=== PATIENT | male | born 1950 | race Caucasian/White ===

== ENCOUNTER 2016-12-03 17:11 | Observation (INO) | payer MEDICARE ==
--- NOTE | ~2016-12-03 | EKG ---
PATIENT: NINO SHANKS UNIT #: [id number] Ventricular Rate: 68 BPM Atrial Rate: 68 BPM P-R Interval: 168 ms QRS Duration: 86 ms Q-T Interval: 396 ms QTC Calculation(Bezet): 421 ms P [place]: 95 degrees Calculated R [place]: 50 degrees Calculated T [place]: 28 degrees Diagnosis Line: Normal sinus rhythm Diagnosis Line: Normal ECG Diagnosis Line: No previous ECGs available Diagnosis Line: Confirmed by KG JALLOH MD ([id number]) on Diagnosis Line: 12/05/2016 4:04:43 PM INTERPRETING MD: YEIMI STRONG
--- NOTE | ~2016-12-03 | DS ---
Unit #: [id number] #: [id number] Patient: NINO SHANKS JR [id number] [address] [place], [place] [address] [id number] I MR#: [id number] NAME: NINO SHANKS JR ROOM: 215 Age: 66 Sex: M Admission Date: 12/03/2016 : 1950 Discharge Date: 12/04/2016 Attending Physician: Joshua Wang M.D. Primary Care Physician: No Primary Care Physician DISCHARGE SUMMARY DISCHARGE DIAGNOSES 1. Likely primary lung cancer which is a new diagnosis with metastatic disease. 2. Likely chronic obstructive pulmonary disease with acute exacerbation, treated with Duo-Nebs and mucolytics. 3. Gastroesophageal reflux disease. 4. Degenerative joint disease. 5. Partial colectomy with colostomy and reversal from diverticular disease. 6. Multiple bilateral rotator cuff repairs. PROCEDURE The patient will have a liver biopsy done today, 12/04/16. IMAGING Imaging consists of chest x-ray 12/03/16 with patchy, oval, nodular density lateral to the mid left hilum measuring close to 3 cm which is new compared to 03/15/2015. CT angiogram chest per PE protocol. Impression - left upper lobe/left hilar lung mass in keeping with appearance of malignancy. Contiguous dense opacity in the anterior left upper lobe is favored to represent contiguous malignant extension to the anterior pleural margin over that of a postobstructive pneumonia. 2) Single 9 mm right lower lobe and 8 mm or left lower lobe noncalcified pulmonary nodules are worrisome for potential metastatic disease. 3) Pathologically enlarged lymph nodes within mediastinum and left hilum in keeping with the appearance of kelsey metastases. 4) Innumerable low density nodules scattered throughout the liver parenchyma consistent with extensive hepatic metastatic disease, incompletely imaged. 5) Incompletely imaged with mild bilateral adrenal gland thickening, worrisome for adrenal metastases. 6) Pathologically enlarged gastrohepatic malignant lymph node in keeping with abdominal metastatic disease. 7) No evidence of osseous metastatic disease in the chest. 8) No pulmonary embolism. HOSPITAL COURSE The patient is a pleasant 66-year-old male with a past medical history of degenerative joint disease, GERD, significant tobacco usage, significant alcohol usage, presents to the emergency department due to dyspnea on exertion with some wheezing. The patient denied chest pain with above symptoms. Patient denied changes in his usual cough and denied weight loss. The patient presented to the emergency department where a nebulizer actually improved his symptoms. His chest x-ray was abnormal; therefore, CT scan was done. CT was worrisome for primary lung cancer with Unit #: [id number] #: [id number] Patient: NINO SHANKS JR metastases. The patient was admitted. Dr. Bajwa of oncology and Dr. Lenz with pulmonary were both consulted. Dr. Bajwa, at this time, is recommending that a liver biopsy be done to find out the exact source of the primary cancer and felt that patient is stable and may discharge home following this procedure. The patient can follow up with Dr. Bajwa. Dr. Lenz has not seen this patient at this time of dictation. I am recommending that if Dr. Lenz has no other workup that patient may be discharged to follow up with Dr. Lenz, Dr. Bajwa as needed. DISCHARGE CONDITION Stable. DISCHARGE DIET Resume to heart healthy diet as was prior to hospitalization. ACTIVITY Resume activities as prior to hospitalization with ambulating every day as tolerated. DISCHARGE MEDICATIONS I will discharge patient with Symbicort two puffs inhaled twice daily. Other than that, patient has no other needs. FOLLOWUP INSTRUCTIONS To follow up with Dr. Bajwa, to call his office. Follow up with Dr. Lenz as needed. Follow up with primary care physician within one to two weeks. Dictated by... Shiv Arteaga PA-C for Simone Ogden/juan manuel TD: 12/06/2016 08:58 JOB #: [id number] DISCHARGE SUMMARY X X DISCHARGE SUMMARY
--- NOTE | ~2016-12-03 | HP ---
Unit #: [id number] #: [id number] Patient: NINO SHANKS JR [id number] [address] [address] [id number] I MR#: [id number] NAME: NINO SHANKS JR ROOM: 14772 Age: 66 Sex: M Admission Date: 12/03/2016 : 1950 Attending Physician: Gill Mckinnon M.D. HISTORY AND PHYSICAL CHIEF COMPLAINT Dyspnea on exertion. CT scan worrisome for primary lung cancer with metastatic disease. HISTORY OF PRESENT ILLNESS This pleasant 66-year-old male with history of DJD and GERD is admitted for an abnormal chest CT. The patient was well until the past week when he began to experience dyspnea on exertion and some wheezing. He denies chest pain with the above, change in his usual cough, or weight loss. He presented to this emergency department where a nebulizer actually improved his symptoms. His chest x-ray was abnormal; therefore, a CT scan was performed. The CT scan is worrisome for primary lung cancer with metastatic disease as will be dictated below. PAST MEDICAL HISTORY 1. Gastroesophageal reflux disease and gastritis. 2. Degenerative joint disease. 3. Partial colectomy with colostomy and reversal for diverticular disease. 4. Admission for a small bowel obstruction in 2015. Colonoscopy revealed polyps which were removed. 5. Multiple bilateral rotator cuff repairs. ALLERGIES None. HOME MEDICATIONS Aleve p.r.n. FAMILY HISTORY Unknown type of cancer. SOCIAL HISTORY The patient lives alone. He smoked between one-half to one and a half packs per day but stopped smoking seven days ago. He did drink heavily in the past but now only drinks occasional beer. REVIEW OF SYSTEMS Notable for dyspnea on exertion, GERD, gastritis, DJD, and above-mentioned surgeries. All other systems were reviewed and are otherwise negative. PHYSICAL EXAMINATION Unit #: [id number] #: [id number] Patient: NINO SHANKS JR GENERAL: A very pleasant 66-year-old male currently in no acute distress. VITAL SIGNS: Temperature 97.4, pulse 73, respirations 20, blood pressure 125/65, and O2 saturation is 100% on room air. HEENT: Eyes PERRLA. Extraocular muscles are intact. Pharynx is benign. NECK: Supple without adenopathy or thyromegaly. CHEST: Somewhat diminished breath sounds but clear. CARDIAC: Normal S1 and S2, without S3, S4, or murmur. ABDOMEN: Bowel sounds are present. Mild hepatomegaly is noted on exam. Nontender. No masses. EXTREMITIES: Without clubbing, cyanosis, or edema. Pedal pulses are present. LYMPHATICS: No cervical, supraclavicular, or axillary lymphadenopathy. NEUROLOGIC: Patient is awake, alert, and oriented. Cranial nerves are intact. Equal strength throughout. DIAGNOSTIC STUDIES LABORATORY: Hematocrit is 46.6, white blood count 11.3, and normal platelet count. SMA-12: Sodium 134, AST 105, ALT 59, and alkaline phosphatase is 206. BNP is normal. Cardiac markers are negative. IMAGING: Chest x-ray shows a 3 cm nodular density around the left hilum with mild elevation of the right hemidiaphragm. CTA of the chest is negative for PE. Left upper lobe/hilar lung mass with opacity to the left upper lobe. This likely is most consistent with primary lung cancer with extension. Cannot rule out postobstructive pneumonia. Small right and left lower lobe noncalcified nodules likely mets. Mediastinal and left hilar adenopathy. Enumerable metastatic lesions to the liver. Mild adrenal gland thickening worrisome for mets as well. CARDIOLOGY: EKG normal sinus rhythm, rate 68, normal appearing. ASSESSMENT 1. Dyspnea, likely chronic obstructive pulmonary disease with exacerbation. 2. Likely primary lung cancer which is a new diagnosis with metastatic disease. PLANS 1. DuoNebs and mucolytics. 2. Pulmonary Oncology consultation. 3. DVT prophylaxis. 1. Dictated by Gill Mckinnon M.D. AML/am TD: 12/03/2016 21:57 JOB #: [id number] Unit #: [id number] #: [id number] Patient: DIMITRIS JRNINO Gigi HISTORY AND PHYSICAL X Gill Mckinnon MD HISTORY AND PHYSICAL
--- NOTE | ~2016-12-03 | CR72 ---
[facility] A Service of [facility] & [facility] RADIOLOGY TEXT RESULTS PATIENT: NINO SHANKS JR LOCATION: A : 48 UNIT #: [id number] AGE: [address]: Joshua Wang MD SEX: M ORDER DR: [id number] [facility] [address] [place], [place] [address] [id number] I MR#: [id number] Acc #: [id number] NAME: NINO SHANKS JR : 1950 SEX: M STUDY DATE/TIME: 12/03/2016 17:05 UNIT: [facility] ROOM: [facility] STUDY DESCRIPTION: CR Chest Single View Portable Attending Physician: Joshua Wang M.D. Ordering Physician: Alfred Abudllahi M.D. Primary Care Physician: Primary Care Physician No MEDICAL IMAGING REPORT This report is preliminary unless electronic signature is present EXAM Portable chest HISTORY Shortness of air for 1 week. FINDINGS Patchy, oval, nodular density lateral to the mid left hilum measuring close to 3 cm is new compared to 03/15/2015. This could be due to focal dense infiltrate or atelectasis. Perihilar nodular mass is not excluded. Suggest either short-term follow up chest x-ray after appropriate assessment and treatment or further characterization with chest CT. Remainder of the lungs are clear. Mild elevation of the right hemidiaphragm. Cardiac and mediastinal contours are normal. Resection of the lateral clavicles bilaterally. Dictated by... Kevin Marsh M.D. THIS IS AN ELECTRONICALLY VERIFIED REPORT Kevin Marsh M.D. at 12/04/2016 2:18 PM GINNA/yudith TD: 12/04/2016 08:31 JOB #: [id number] MEDICAL IMAGING REPORT COPY
--- NOTE | ~2016-12-03 | CO ---
Unit #: [id number] #: [id number] Patient: DARIUS SHANKS JR [id number] [address] [place], [place] [address] [id number] I MR#: [id number] NAME: DARIUS SHANKS JR ROOM: 215 Age: 66 Sex: M Admission Date: 12/03/2016 : 1950 Attending Physician: Joshua Wang M.D. Consultation Date: 12/04/2016 CONSULTATION REPORT REASON FOR CONSULTATION Lung mass with liver METS. HISTORY OF PRESENT ILLNESS Mr. Darius Shanks is a 66-year-old with a long history of smoking and gastroesophageal reflux disease, who presents to the emergency room complaining of shortness of breathing and wheezing. He had a CT angio of the chest done on 12/04/2016, which showed a mass lesion of the left hilum extending to the left upper lobe measuring 4.2 x 2.7 x 2.8 cm encasing the left upper lobe pulmonary artery with some extrinsic compression of left superior pulmonary vein. There was continuous consolidation versus mass lesion measuring 5.9 x 3.3 cm in the left upper lobe along with left hilar lymph nodes measuring 2.2 x 1.9 cm subcarinal as I go esophageal recess and prevascular nodes. It was noncalcified nodule in the left lower lobe measuring 8 mm with innumerable low-density lesions scattered throughout the liver consistent with metastatic disease and adrenal glands appear thickened. Mr. Shanks tells me he has had no recent changes in appetite and weight and is otherwise feeling well. No changes in cough pattern, wheezing before admission, but no hemoptysis. PAST MEDICAL HISTORY Gastroesophageal reflux disease and gastritis, degenerative joint disease. PAST SURGICAL HISTORY Multiple bilateral rotator cuff repairs, partial colectomy with colostomy and reversal for diverticular disease about 19 years ago. ALLERGIES No known medication allergies. HOME MEDICATIONS Aleve p.r.n. FAMILY HISTORY Carcinoid in brother. SOCIAL HISTORY Smokes between 1 to 1-1/2 packs a day, but quit smoking a week ago, starting smoking at age 7 per [id number] history of smoking. History of alcohol use in the past, but currently only an occasional beer. He is single and has 2 sons. REVIEW OF SYSTEMS A 14-point review of system taken. Unit #: [id number] #: [id number] Patient: DARIUS SHANKS JR CONSTITUTIONAL: As discussed. EYES: Negative. EARS, NOSE, MOUTH AND THROAT: Negative. CARDIOVASCULAR: Negative. RESPIRATORY: As discussed. GASTROINTESTINAL: Negative. GENITOURINARY: Negative. MUSCULOSKELETAL: Multiple rotator cuff surgeries. ALLERGIC/LYMPHATIC: Negative. SKIN: Negative. PSYCHIATRIC: Negative. PHYSICAL EXAMINATION GENERAL: He is a pleasant elderly man, awake, alert, and oriented x3. ECOG performance status is 1. VITAL SIGNS: Temperature is 97.4, pulse of 64, respiratory rate is 18, blood pressure 113/44, O2 saturation 98% on room air. HEENT: Shows pupils are equal and reactive well to light. No pallor or icterus. Mucous membranes are moist. NECK: Without adenopathy, JVD, or thyromegaly. CARDIOVASCULAR: First and second heart sounds are heard and regular without murmurs, gallops, or rubs. LUNGS: Chest expansion is symmetric. Few scattered wheezes. ABDOMEN: Soft and nontender. There were easy palpable 4 inches below costal margin firm. Spleen not felt. EXTREMITIES: Warm and good pulses. No edema, cyanosis, or clubbing. NEUROLOGIC: He is awake, alert, and oriented x3 without any focal findings. SKIN: Negative. PSYCHIATRIC: Normal affect. DIAGNOSTIC STUDIES LABORATORY RESULTS: CBC; white count of 11.3, hemoglobin is 15.4, platelet count 211. Complete metabolic panel showed a BUN of 21, creatinine is 1.2. AST is 105, ALT is 59, alkaline phosphatase is 206, bilirubin is 0.3. Albumin is 3.6. BNP is 20. D-dimer is 3450. IMAGING STUDIES: CT angio of the chest was personally reviewed by me and I showed the images to Mr. Shanks, it shows a left upper lobe lung mass with multiple liver lesions consistent with metastatic disease. ASSESSMENT AND PLAN Mr. Darius Shanks is a 66-year-old with a long history of cigarette smoking, but no other significant past medical history, admitted with shortness of breathing for a week without any significant weight loss. CT angio of the chest is concerning for left upper lobe lung cancer metastatic to liver with multiple liver metastasis. I discussed the likely diagnosis with Mr. Shanks and the need for a biopsy for confirmation of diagnosis. We discussed about small cell and non-small cell lung cancer to be determined by Pathology. I spoke to Dr. Lamont Desai of [facility]. I think a CT-guided liver biopsy would be the best option and we discussed about getting coagulation studies as well as the fact that he had been on Lovenox yesterday. Discussed with Mr. Shanks, he can be discharged home following his biopsy to see me in the office on Sunday. Dictated by... Unit #: [id number] #: [id number] Patient: DARIUS SHANKS JR, M.D. VMR/sommer TD: 12/05/2016 05:02 JOB #: [id number] CONSULTATION REPORT X Sergio Bajwa MD CONSULTATION REPORT
--- NOTE | ~2016-12-03 | XA60 ---
[facility] A Service of [facility] RADIOLOGY TEXT RESULTS PATIENT: NINO SHANKS JR LOCATION: [facility] : 48 UNIT #: [id number] AGE: [address]: Joshua Wang MD SEX: M ORDER DR: [id number] [place] [id number] [facility]. [place], [place] [address] [id number] MR#: [id number] Acc #: [id number] NAME: NINO SHANKS JR : 1950 SEX: M STUDY DATE/TIME: 12/04/2016 16:51 UNIT: [facility] ROOM: [facility] STUDY DESCRIPTION: XA BX Perc Liver Attending Physician: Joshua Wang M.D. Ordering Physician: Joshua Wang M.D. Primary Care Physician: Primary Care Physician No MEDICAL IMAGING REPORT This report is preliminary unless electronic signature is present EXAM Ultrasound-guided liver biopsy, 12/05/2016 CLINICAL HISTORY New diagnosis presumed lung cancer with multifocal hepatic metastatic disease. PROCEDURE Informed consent was obtained from the patient. Skin site was selected with ultrasound guidance and marked and sterilely prepped and draped and locally anesthetized. Fentanyl and Versed were used for IV conscious sedation with hemodynamic monitoring provided by the nursing staff throughout the procedure. After sterile preparation and draping with local anesthesia using real time ultrasound guidance and INRAD needle gun was used to obtain cor specimen from the several lesions in the right lobe of the liver. There were no complications and the patient tolerated the procedure well. IMPRESSION 1. Successful ultrasound-guided core biopsy of metastatic liver lesions from the right lobe of the liver with consciousness sedation as above. 2. Total sedation time 30 minutes. Dictated by... Lamont Desai M.D. THIS IS AN ELECTRONICALLY VERIFIED REPORT Lamont Desai M.D. at 12/06/2016 11:48 AM TAYLOR/miladis [facility] A Service [facility] RADIOLOGY TEXT RESULTS PATIENT: NINO SHANKS JR LOCATION: [facility] : 48 UNIT #: [id number] AGE: [address]: Joshua Wang MD SEX: M ORDER DR: TD: 12/06/2016 05:16 JOB #: [id number] MEDICAL IMAGING REPORT COPY
--- NOTE | ~2016-12-03 | CT16 ---
[facility] A Service of [facility] & [facility] RADIOLOGY TEXT RESULTS PATIENT: NINO SHANKS JR LOCATION: A : 48 UNIT #: [id number] AGE: [address]: Joshua Wang MD SEX: M ORDER DR: [id number] [id number] [place], [place] [address] [id number] I MR#: [id number] Acc #: [id number] NAME: NINO SHANKS JR : 1950 SEX: M STUDY DATE/TIME: 12/03/2016 19:07 UNIT: [facility] ROOM: [facility] STUDY DESCRIPTION: CT Angio Chest for PE Attending Physician: Joshua Wang M.D. Ordering Physician: Kashif Araiza M.D. Primary Care Physician: No Primary Care Physician MEDICAL IMAGING REPORT This report is preliminary unless electronic signature is present EXAM CTA chest PE protocol DATE 12/03/2016 HISTORY 66-year-old male with shortness of breath for 3-4 days. Elevated D-dimer at 3,450 on 12/03/2016. COMPARISON AP portable chest radiograph 12/03/2016. No prior CT chest at this institution for comparison. PROCEDURE 2 mm axial images through the chest after IV contrast administration. 3D coronal MIP reformatted images were obtained. This CT exam was performed with one or more of the following radiation dose reduction techniques: automatic exposure control, adjustment of mA and/or kV according to patient size, and iterative reconstruction. FINDINGS There is no pulmonary embolism. There is no thoracic aortic aneurysm or aortic dissection. A mass lesion is seen within the left hilum extending contiguously to the left upper lobe, measuring approximately 4.2 cm AP oblique x 2.7 cm transverse oblique x 2.8 cm craniocaudal. It encases the left upper lobe pulmonary artery. It does not occlude it. It also creates some extrinsic compression upon the left superior pulmonary vein. There is contiguous consolidation versus mass lesion extending anteriorly in the left upper lobe from the hilum to the pleural margin measuring 5.9 x 3.3 cm, most worrisome for contiguous tumor involvement. Additional left hilar [facility] A Service of [facility] & [facility] RADIOLOGY TEXT RESULTS PATIENT: NINO SHANKS JR LOCATION: [facility] 215-01 : 48 UNIT #: [id number] AGE: [address]: Joshua Wang MD SEX: M ORDER DR: pathologically-enlarged lymph node measures 2.2 x 1.9 cm. Subcarinal-azygoesophageal recess lymph node appears borderline enlarged up to 1 cm short axis. Enlarged prevascular lymph node measures 1.5 x 0.9 cm. No supraclavicular or axillary adenopathy is seen. There is a linear band-like atelectasis within the right lower lobe. Noncalcified nodules worrisome for potential metastatic disease seen in the left lower lobe measuring 8 mm (series 6 image 138), within the right lower lobe measuring 9 mm (image 140). No right upper lobe or right middle lobe pulmonary nodules are identified. Moderately-advanced emphysematous changes are present. No pericardial effusion or pleural effusion. Innumerable low-density lesions are scattered throughout the liver parenchyma in keeping with the appearance of metastatic disease. An index lesion in the medial left hepatic segment measures 2.5 cm. The adrenal glands are incompletely imaged but appear mildly thickened and could represent changes of early metastatic disease. Enlarged gastrohepatic ligament chain lymph node in the abdomen measures 2.2 x 1.7 cm. No suspicious osteolytic or osteoblastic lesions are identified. IMPRESSION 1. Left upper lobe-left hilar lung mass in keeping with the appearance of malignancy. Contiguous dense opacity in the anterior left upper lobe is favored to represent contiguous malignant extension to the anterior pleural margin over that of postobstructive pneumonia. 2. Single 9 mm right lower lobe and 8 mm or left lower lobe noncalcified pulmonary nodules are worrisome for potential metastatic disease. 3. Pathologically-enlarged lymph nodes within mediastinum and left hilum in keeping with the appearance of kelsey metastasis. 4. Innumerable low-density nodules scattered throughout the liver parenchyma consistent with extensive hepatic metastatic disease, incompletely imaged. 5. Incompletely imaged with mild bilateral adrenal gland thickening, worrisome for adrenal metaphysis. 6. Pathologically-enlarged gastrohepatic ligament lymph node in keeping with abdominal metastatic disease. 7. No evidence of osseous metastatic disease in the chest. 8. No pulmonary embolism. 9. CT abdomen and pelvis recommended on a nonemergent basis for clinical staging purposes. Dictated by... Unique Abraham M.D. [facility] A Service of [facility] RADIOLOGY TEXT RESULTS PATIENT: NINO SHANKS JR LOCATION: [place] [address] : 48 UNIT #: [id number] AGE: [address]: Joshua Wang MD SEX: M ORDER DR: THIS IS AN ELECTRONICALLY VERIFIED REPORT Unique Abraham M.D. at 12/04/2016 2:04 PM CHRISTOFER/sarah TD: 12/04/2016 10:23 JOB #: [id number] MEDICAL IMAGING REPORT COPY
--- NOTE | ~2016-12-03 | CO ---
Unit #: [id number] #: [id number] Patient: NINO SHANKS JR [id number] [address] [place], [place] [address] [id number] MR#: [id number] NAME: NINO SHANKS JR ROOM: 215 Age: 66 Sex: M Admission Date: 12/03/2016 : 1950 Attending Physician: Joshua Wang M.D. Consultation Date: 12/04/2016 CONSULTATION REPORT REASON FOR CONSULT Abnormal CAT scan. HISTORY OF PRESENT ILLNESS This is a very pleasant 66-year-old male with a past medical history significant for extensive smoking, who presented to the emergency room with shortness of breath and wheezing for the last few days. Patient denied any weight loss, night sweats, or chills. Upon presentation to the emergency room, patient was given a nebulizer treatment, and a chest x-ray was obtained which was abnormal and mandated a dedicated CT chest which was very worrisome for primary lung cancer with diffuse metastasis to liver and bones and lymphadenopathy. PAST MEDICAL HISTORY 1. Gastroesophageal reflux disease. 2. Gastritis. 3. Degenerative joint disease. PAST SURGICAL HISTORY 1. Partial colectomy with colostomy and reversal for diverticular disease. 2. Colonoscopy. 3. Multiple bilateral rotator cuff repairs. ALLERGIES No known drug allergies. HOME MEDICATIONS Aleve p.r.n. FAMILY HISTORY Unknown type of cancer. SOCIAL HISTORY Patient lives alone. He smoked between one-half to one and a half packs per day but stopped smoking seven days ago. He drank heavily in the past but now only drinks occasional beer. REVIEW OF SYSTEMS A 12-point review of systems was obtained and was negative except for what was mentioned in the History of Present Illness. PHYSICAL EXAMINATION GENERAL: Patient does not appear in any distress. Unit #: [id number] #: [id number] Patient: NINO SHANKS JR VITAL SIGNS: Blood pressure 131/69, respiratory rate 17, and O2 saturation 98% on room air. HEENT: Atraumatic, normocephalic. PERRLA. EOMI. NECK: Supple. No JVD. No lymphadenopathy. CHEST: Clear to auscultation bilaterally. HEART: S1 and S2. No murmur, gallops, or rubs. ABDOMEN: Soft, nontender. Bowel sounds are positive. No hepatosplenomegaly. EXTREMITIES: No edema or cyanosis. SKIN: No rashes. CENTRAL NERVOUS SYSTEM: Awake, alert, oriented x3. No focal motor/sensory deficits. DIAGNOSTIC STUDIES LABORATORY: Creatinine 1.1, sodium 134, and AST 105. White blood count 11.3 and hemoglobin 15.4. IMAGING: CT chest and chest x-ray were reviewed and noted by me and are consistent with lung cancer with diffuse metastasis. ASSESSMENT 1. Lung mass. 2. Extensive smoking. 3. Gastroesophageal reflux disease. 4. Degenerative joint disease. 5. Mild hyponatremia. 6. Transaminitis. PLAN 1. CT chest was reviewed and noted by me. The best approach to his lung mass for diagnosis will be either with EBUS or CT-guided biopsy from lung or liver lesions. 2. A regular bronchoscopy will not be able to obtain a diagnosis most likely. 3. Will continue patient on bronchodilator and mucolytics. 4. No indication for antibiotics at this point. 5. Patient was counseled regarding smoking cessation, and he understands. 6. DVT prophylaxis. I would like to thank you for allowing me to be part of this patient's care. Dictated by... Simone Ardon TD: 12/05/2016 20:25 JOB #: [id number] Unit #: [id number] #: [id number] Patient: NINO SHANKS JR CONSULTATION REPORT X CLOVER HE MD CONSULTATION REPORT
[~2016-12-03 17:11] MED LIST: ALEVE220 M1 PO; KEFLEX PO; LORTAB 7.5-5001 TAB PO; NO MEDICATIONS; ORUDIS75 M1 PO; TYLOX 5/500 CAP1 CAP PO
[2016-12-03 17:47] LABS: BASOPHIL# 0.1 X10e3 (0-0.3); BASOPHIL% 0.7 % (0-2.5); EOSINOPHIL# 0.2 X10e3 (0-0.7); EOSINOPHIL% 1.6 % (0.0-7.0); HEMATOCRIT 46.6 % (38.0-50.0); HEMOGLOBIN 15.4 gm/dL (13.0-16.0); LYMPHOCYTE# 1.3 X10e3 (1.0-3.5); LYMPHOCYTE% 11.1 % (17.0-45.0); MEAN CELL VOLUME 85.6 FL (83-96); MEAN CORPUSCULAR HEMOGLOBIN 28.2 PG (28-34); MEAN PLATELET VOLUME 7.8 FL (6.5-11.5); MONOCYTE% 9.1 % (3.0-12.0); NEUTROPHIL# 8.7 X10e3 (1.5-7.1); NEUTROPHIL% 77.5 % (40-75); PLATELET COUNT 211 X10e3 (140-420); RED BLOOD COUNT 5.45 X10e (3.90-5.60); RED CELL DISTRIBUTION WIDTH 14.9 % (11.0-15.5); WHITE BLOOD COUNT 11.3 X10e3 (4.0-10.5)
[2016-12-03 17:50] LABS: DIFF IND NO
[2016-12-03 18:08] LABS: ALBUMIN SERUM 3.6 g/dL (3.5-5.0); ALKALINE PHOSPHATASE 206 U/L (32-92); ALT (SGPT) 59 U/L (10-40); AST (SGOT) 105 U/L (10-42); BILIRUBIN, DIRECT 0.3 mg/dL (0.0-0.2); BILIRUBIN,INDIRECT 0.9 mg/dL (0.0-0.9); BILIRUBIN,TOTAL 1.2 mg/dL (0.2-2.0); BLOOD UREA NITROGEN 21 mg/dL (9-23); CALCIUM SERUM 8.9 mg/dL (8.4-10.2); CARBON DIOXIDE 25 mmol/L (22-31); CHLORIDE 100 mmol/L (100-111); CREATININE SERUM 1.2 mg/dL (0.6-1.4); GLOM FILT RATE Estimated ABOVE60 mL/min (>60); GLUCOSE FASTING 84 mg/dL (70-110); POTASSIUM 4.3 mmol/L (3.5-5.1); SODIUM 134 mmol/L (135-145)
[2016-12-03 19:13] LABS: POC - CKMB 55.7 ng/mL (0.0-7.9); POC - TROPONIN <0.05 ng/mL (<=0.05)
[2016-12-03 19:51] LABS: POC - TROPONIN <0.05 ng/mL (<=0.05)
[2016-12-03] MEDS ORDERED: NO HOME MEDS (23:21)
[2016-12-04 07:15] LABS: BLOOD UREA NITROGEN 17 mg/dL (9-23); BUN/CREATININE RATIO 15.45; CARBON DIOXIDE 26 mmol/L (22-31); CHLORIDE 101 mmol/L (100-111); CREATININE SERUM 1.1 mg/dL (0.6-1.4); GLOM FILT RATE Estimated ABOVE60 mL/min (>60); GLUCOSE FASTING 79 mg/dL (70-110); POTASSIUM 4.9 mmol/L (3.5-5.1); SODIUM 135 mmol/L (135-145)
[2016-12-04 14:00] LABS: HEMATOCRIT 46.6 % (38.0-50.0); HEMOGLOBIN 15.4 gm/dL (13.0-16.0); MEAN CELL VOLUME 85.7 FL (83-96); MEAN CORPUSCULAR HEMOGLOBIN 28.4 PG (28-34); MEAN CORPUSCULAR HGB CONC 33.1 g/dL (30-36); MEAN PLATELET VOLUME 7.6 FL (6.5-11.5); RED BLOOD COUNT 5.44 X10e (3.90-5.60); RED CELL DISTRIBUTION WIDTH 15.3 % (11.0-15.5); WHITE BLOOD COUNT 10.7 X10e3 (4.0-10.5)
[2016-12-04 14:48] LABS: INR 1.1
[2016-12-04] MEDS ORDERED: SYMBICORT INH (18:27)
[2016-12-25] MEDS ORDERED: PROTONIX PO (12:26)
[2016-12-25] MEDS ORDERED: HYDROCODON-ACE1 EAC7 PO (15:04)
[2016-12-25] MEDS ORDERED: ALPRAZOLAM0.25 MG PO (15:05)
[2016-12-25] MEDS ORDERED: ADVAIR 100-501 EAC1 INH (15:05)
== END 2016-12-04 20:39 | disposition home or self-care (01) ==
LOC: CED 17:11 → CEDOF 21:00 → C2A 22:36
PROVIDERS: Emergency Medicine; Internal Medicine
DX: C78.7 Secondary malignant neoplasm of liver and intrahepatic bile duct (principal); R91.8 Other nonspecific abnormal finding of lung field; F17.210 Nicotine dependence, cigarettes, uncomplicated; M19.90 Unspecified osteoarthritis, unspecified site; K21.9 Gastro-esophageal reflux disease without esophagitis; E87.1 Hypo-osmolality and hyponatremia; R74.0 Nonspecific elevation of levels of transaminase and lactic acid dehydrogenase [LDH]; Z90.49 Acquired absence of other specified parts of digestive tract
CPT/HCPCS: 36415; 71010; 71275; 76942; 80048; 80076; 82553; 83880; 84484; 85025; 85027; 85379; 85610; 85730; 88307; 88341; 88342; 93005; 94640; 94760; 99285; G0378; J1650; J2250; J3010; Q9967

== ENCOUNTER 2016-12-06 16:29 | Inpatient (IN) | payer MEDICARE ==
--- NOTE | ~2016-12-06 | DS ---
Unit #: [id number] #: [id number] Patient: NINO SHANKS [id number] [address] [place], [place] [address] [id number] I MR#: [id number] NAME: NINO SHANKS ROOM: 337 Age: 66 Sex: M Admission Date: 12/06/2016 : 1950 Discharge Date: 12/08/2016 Attending Physician: Joshua Wang M.D. Primary Care Physician: Primary Care Physician No DISCHARGE SUMMARY DISCHARGE DIAGNOSES 1. Acute blood loss anemia secondary to liver biopsy that was done here recently on 12/04/2016 for cancer diagnosis. 2. Acute kidney injury secondary to IV contrast that was utilized as well as acute blood loss anemia. 3. Stage IV lung cancer. The patient is being followed by Dr. Bajwa and who have outpatient planning for chemotherapy. 4. Tobacco usage with chronic obstructive pulmonary disease, stable on inhalers. PROCEDURES None. DIAGNOSTIC STUDIES IMAGING STUDIES: Consist of a CT angio of chest, impression is no evidence of pulmonary embolism. No significant interval change in the left suprahilar mass and soft tissue extending entirely to the pleural surface in the left upper lobe. No significant change to the left hilar adenopathy or other lymph nodes scattered throughout the mediastinum, emphysema. CT of the abdomen with contrast, impression is extensive hepatic metastatic disease new compared with the comparison study. There is moderately large volume that advanced the liver and tracking inferiorly along the left paracolic gutter and extending into the pelvis. Stable indeterminate right adrenal lesion. CT of abdomen without contrast, impression is slight decrease in size of sub capillary hematoma and intraparenchymal hematoma of the liver, diffuse hepatic metastatic disease as previously described. The CT of abdomen with contrast was on 12/06/2016, without was on 12/07/2016. On 12/07/2016, MRI of the brain without contrast, impression, as the patient's GFR was very low, contrast was not given as no obvious significant lesion were identified to further characterize it there or probable known metastasis, number 2 is tiny punctuate, single nonspecific hyperintense T2 focus is seen in the right frontal white matter likely related to minimal chronic microvascular ischemic change or migraine. For the patient of 66, the patient has no more imaging. LABORATORY RESULTS: Include BMP; glucose 82, BUN 29, creatinine 1.0. Sodium 133, potassium 4.5, chloride 104, CO2 of 20, calcium 8.4, phosphorus is 2.5, magnesium is 2.1, total protein is 5.4, albumin is 2.7, total bilirubin is 1.2. AST is 218, ALT is 232, alkaline phosphatase is 230. CBC with WBC of 12.8, RBC of 3.63, hemoglobin is 10.3, hematocrit is 31.2, MCV is 85.9, MCH is 20.4, MCHC is 33.1, RDW is 15.3, platelets are 179, MVP is 8.0. Unit #: [id number] #: [id number] Patient: NINO SHANKS [facility] The patient is a pleasant 66-year-old male, who was just discharged from our facility from 12/03/2016 to 12/04/2016 for liver biopsy following CT of the chest concerning for lung and liver cancer. The patient went home and began to feel progressively short of breath. He presented to his oncologist office, Dr. Bajwa and was noticed to have some tenderness in his abdomen. His liver was felt to be large and the patient was sent for CT scan. Scan showed abdominal hemorrhage. Hemoglobin and hematocrit reviewed in the patient's oncologist office is not available, though reported to be much reduced in the emergency department. This revealed to be 11.3 reduced from 15.4. The patient was admitted under observation due to acute GI blood loss. The patient was admitted due to acute kidney injury with creatinine of 2.1 on admission compared to 1.1 2 days ago. It was felt that his acute kidney injury with elevated creatinine was due to, 1. The IV contrast that was used. 2. Volume blood loss from anemia. Dr. Castellon was seen in consultation. With IV fluid hydration, the patient's creatine had improved to 1.0. At this time, the patient's hemoglobin and hematocrit were both stable at 10.5, and 10.3. Hematocrit is stable at 32.2, 31.2, then now 31.2. I feel that the patient's bleeding has stopped and H and H is stable. His creatinine has resolved with IV fluid. His creatinine had improved and his acute kidney injury has resolved with creatinine of 1.0 after fluid hydration. I believe the patient is stable at this time to discharge home. The patient can follow up with Dr. Bajwa in his office for outpatient chemotherapy planning. The patient currently does not have a primary care physician, therefore I have left him with Dr. Graham' card to follow up him on [id number] walk-in patient prior to 2 p.m. DISCHARGE CONDITION Stable. DISCHARGE DIET Continue with heart healthy diet. ACTIVITY Ambulate as was prior to hospitalization as tolerated. DISCHARGE MEDICATIONS Includes Symbicort 160 mcg two puffs inhaled b.i.d. The patient was instructed to stop Aleve for his pain management. Protonix 40 mg orally daily. Dictated by... Shiv Arteaga PA-C for Simone Ogden/sommer TD: 12/09/2016 16:18 JOB #: [id number] Unit #: [id number] #: [id number] Patient: NINO SHANKS DISCHARGE SUMMARY X X DISCHARGE SUMMARY
--- NOTE | ~2016-12-06 | MR18 ---
[facility] A Service of [facility] RADIOLOGY TEXT RESULTS PATIENT: NINO SHANKS LOCATION: [facility] : 48 UNIT #: [id number] AGE: [address]: Joshua Wang MD SEX: M ORDER DR: [id number] [facility] [address] [place], [place] [address] [id number] I MR#: [id number] Acc #: [id number] NAME: NINO SHANKS : 1950 SEX: M STUDY DATE/TIME: 12/07/2016 10:39 UNIT: C3A PCU ROOM: [facility] STUDY DESCRIPTION: MR Brain Wo Contrast Attending Physician: Joshua Wang M.D. Ordering Physician: Sergio Bajwa M.D. Primary Care Physician: Primary Care Physician No MRI CENTER REPORT This report is preliminary unless electronic signature is present. EXAM MRI of the brain without contrast dated 12/07/2016 COMPARISON None. HISTORY Lung mass, dyspnea. Evaluate for metastasis to the brain, staging. FINDINGS Multisequence, multiplanar imaging of the brain was obtained without contrast. Patient's GFR was 33. Sagittal T1 sequence was repeated due to motion artifact. No acute stroke, hydrocephalus, hemorrhage, space occupying intracranial mass or midline shift is seen. Incidental single punctate hyperintense T2 nonspecific signal is seen in the right frontal centrum semiovale. Thick slices through the sella with the pituitary gland, pineal region are unremarkable. Degenerative changes are in the cervical spine involving C3-4. IMPRESSION 1. As patient's GFR was very low, contrast was not given as no obvious significant lesions were identified to further characterize it. There are probably no metastases. 2. Tiny, punctate, single, nonspecific hyperintense T2 focus is seen in the right frontal white matter, likely related to minimal chronic microvascular ischemic change or migraine. 3. For a patient of 66, patient has normal imaging. [facility] A Service of [facility] RADIOLOGY TEXT RESULTS PATIENT: NINO SHANKS LOCATION: [facility] : 48 UNIT #: [id number] AGE: [address]: Joshua Wang MD SEX: M ORDER DR: Dictated by... Montrell Marx M.D. THIS IS AN ELECTRONICALLY VERIFIED REPORT Montrell Marx M.D. at 12/08/2016 3:50 PM CPR/mjs TD: 12/07/2016 13:20 JOB #: [id number] MRI CENTER REPORT COPY
--- NOTE | ~2016-12-06 | HP ---
Unit #: [id number] #: [id number] Patient: NINO SHANKS [id number] [address] [address] [id number] I MR#: [id number] NAME: NINO SHANKS ROOM: 337 Age: 66 Sex: M Admission Date: 12/06/2016 : 1950 Attending Physician: Raheel Meyers M.D. Primary Care Physician: No Primary Care Physician HISTORY AND PHYSICAL CHIEF COMPLAINT Shortness of breath. HISTORY OF PRESENT ILLNESS The patient is a 66-year-old male who was just discharged from this facility two days ago after a liver biopsy. The patient states he went home and began to feel progressively short of breath. He presented to see his oncologist today and was noted to have some tenderness in his abdomen. His liver was felt to be large and the patient was sent for a CT scan. Scan showed an abdominal hemorrhage. Hemoglobin and hematocrit repeated in the patient's oncologist's office is not available to me but was reported as being much reduced from two days ago. Repeat is pending. The patient states that he feels much better after some Aleve. Patient denies nausea, vomiting or diarrhea. PAST MEDICAL HISTORY 1. Gastroesophageal reflux and gastritis. 2. Degenerative joint disease. 3. Partial colectomy and colostomy and reversal for diverticular disease. 4. Admission for small bowel obstruction in 2016. 5. Multiple bilateral rotator cuff repairs. 6. Stage IV lung cancer. HOME MEDICATIONS 1. Aleve p.r.n. 2. Symbicort. FAMILY HISTORY An unknown type of cancer. SOCIAL HISTORY The patient lives alone, has had no tobacco for approximately two weeks, denies alcohol and illicit drug use. ALLERGIES No known drug allergies. REVIEW OF SYSTEMS Ten-point review of systems obtained, negative except as per HPI. PHYSICAL EXAMINATION VITAL SIGNS: Temperature 97.9. Pulse 93. Blood pressure 91/56. GENERAL: A 66-year-old male in no acute distress who appears stated age. Unit #: [id number] #: [id number] Patient: NINO SHANKS HEENT: Pupils are equally round. Extraocular movements intact. Mucous membranes dry. NECK: Supple. No JVD. No lymphadenopathy. CARDIAC: Regular rate and rhythm. No murmurs, gallops or rubs. LUNGS: Lungs are with occasional rhonchi bilaterally, with equal air entry bilaterally. ABDOMEN: Diffusely tender to palpation with some mild distention. He has hepatomegaly. EXTREMITIES: No cyanosis, clubbing or edema. They are warm and dry. PSYCHIATRIC: Alert and oriented x3. Affect is appropriate. NEUROLOGICAL: Cranial nerves II-XII intact grossly. The patient moves all extremities equally and with purpose. SKIN: No rashes, bruises or ulcers. MUSCULOSKELETAL: No muscle or joint pain. No muscle or joint swelling. DIAGNOSTIC STUDIES LABORATORY: As mentioned above CBC and BMP are pending. IMAGING: CT of the abdomen did reveal what was thought to be hemorrhage status post liver biopsy. ASSESSMENT AND PLAN 1. Acute blood loss anemia: The patient's hemoglobin is being repeated. The patient will be monitored for further blood loss and treated for pain. 2. Stage IV lung cancer: It is my understanding that the patient will be undergoing chemotherapy soon. 3. Pain: I started the patient on tramadol. He states that he does not like to take pain medication but agrees to attempt tramadol if he needs it. 4. Prophylaxis: I have started the patient on SCDs. Dictated by Joshua Wang M.D. CULLEN/mariam TD: 12/06/2016 20:51 JOB #: [id number] HISTORY AND PHYSICAL X Joshua Wang MD HISTORY AND PHYSICAL
--- NOTE | ~2016-12-06 | CO ---
Unit #: [id number] #: [id number] Patient: DARIUS SHANKS [id number] [address] [address] [id number] I MR#: [id number] NAME: DARIUS SHANKS ROOM: 337 Age: 66 Sex: M Admission Date: 12/06/2016 : 1950 Attending Physician: Joshua Wang M.D. Primary Care Physician: No Primary Care Physician Consultation Date: 12/07/2016 CONSULTATION REPORT REASON FOR CONSULT Renal insufficiency. HISTORY Thank you very much for asking us to see this patient in consultation. Mr. Darius Shanks is a 66-year-old male with newly diagnosed lung cancer with liver metastasis who underwent a liver biopsy on 12/04/16. He presented to Dr. Bajwa's office with increased shortness of breath, some abdominal pain. He underwent a scan that showed hematoma and bleed post biopsy. He also was noted to be hypotensive and was admitted here. The patient was noted over the last year to have a creatinine of 1.1 to 1.3. It was 1.1 and went up to 2.1 today and had decreased output. Because of this, I was asked to see the patient. The patient states he has never known of any problems with his kidneys. He has undergone 2 [address] angiogram of the chest on 12/03 and 12/06. He, also, has been taking naproxen intermittently at home, as well as some Advil. PAST MEDICAL HISTORY 1. History of COPD. 2. History of gastroesophageal reflux disease. 3. History of degenerative joint disease. 4. He is status post colostomy and reversal secondary to diverticulitis in the past. 5. History of newly diagnosed lung cancer with liver metastasis. SOCIAL HISTORY Lives alone. No alcohol. Positive smoker. ALLERGIES No known drug allergies. MEDICATIONS Medications at home mainly was just Aleve there. Here he was ordered some naproxen. REVIEW OF SYSTEMS He denies any headaches, dizziness, visual problems, sinus problems. No cough or hemoptysis. No neck pain, neck stiffness. No chest pain, chest heaviness, palpitations. He has shortness of breath. He states is improving. He does have some mild abdominal discomfort over the liver but not severe. He denies any urinary symptoms - starting, stopping, burning. He denies any lower extremity swelling. No recent seizures, strokes or skin rashes. Unit #: [id number] #: [id number] Patient: DARIUS SHANKS FAMILY HISTORY Noncontributory. PHYSICAL EXAMINATION GENERAL: He is alert and oriented. VITAL SIGNS: Temperature is 98.1, pulse 63-97, blood pressure 91-127/50s to 100. HEENT: Normocephalic, atraumatic. Pupils are equal, round and reactive to light. His extraocular muscles are intact. Hearing appears to be normal. Mouth is clear. No erythema. No exudate. NECK: No supple. No JVD. CARDIAC: He has a regular rate without a rub. No S3 or S4. LUNGS: His lungs are clear bilaterally. No wheezes, rhonchi or rales. ABDOMEN: Some mild tenderness. No rebound or guarding. Bowel sounds positive. EXTREMITIES: He has no lower extremity swelling. His pulses are intact in lower extremities. MUSCULOSKELETAL: No joint pain, joint swelling. SKIN: No acute rashes. NEUROLOGIC: Appears intact to motor and sensory grossly : Deferred. DIAGNOSTIC STUDIES LABORATORY DATA: Sodium 132, potassium 4.9, chloride 99, bicarb 20, BUN 50, creatinine 2.1, calcium 8.9, albumin 3.4. glucose 123. Liver enzymes normal. INR 1.2. Hemoglobin 15.5, then 11.3, down to 10.6 today. White count is 17,200, platelets 209,000. ASSESSMENT AND PLAN Acute kidney injury. This gentleman has increased BUN and creatinine, most likely multifactorial, including IV contrast x2 in the last few days, as well as hypotension and bleeding from his liver biopsy, as well as +/- nonsteroidal use. Certainly agree with IV fluids for now and blood transfusions if clinically indicated. Will check a UA, culture and sensitivity. Will check a random urine sodium, urine eosinophils, as well as check a postvoid residual. Hopefully, just with correction of the above his renal function will improve. I have discussed with the patient, and he understands. Again, will continue IV fluids and will continue to follow. Thank you very much. Dictated bySalvador Castellon M.D. REILLY/wes TD: 12/08/2016 13:29 JOB #: [id number] Unit #: [id number] #: [id number] Patient: DARIUS SHANKS CONSULTATION REPORT X Elza Castellon MD CONSULTATION REPORT
--- NOTE | ~2016-12-06 | CO ---
Unit #: [id number] #: [id number] Patient: DARIUS SHANKS [id number] [address] [address] [id number] I MR#: [id number] NAME: DARIUS SHANKS ROOM: 337 Age: 66 Sex: M Admission Date: 12/06/2016 : 1950 Attending Physician: Joshua Wang M.D. Primary Care Physician: No Primary Care Physician Consultation Date: 12/07/2016 CONSULTATION REPORT REQUESTING PHYSICIAN Consult requested by Dr. Joshua Wang. REASON FOR CONSULTATION Small cell lung cancer. HISTORY OF PRESENT ILLNESS Mr. Darius Shanks is 66 years old with newly diagnosed small cell lung cancer, who was admitted and discharged from the hospital on December 04, 2016 after undergoing a liver biopsy. When seen in the office on December 06, 2016, he was very short of breath with severe right upper quadrant abdominal pain. Bleeding from his biopsy was suspected and confirmed by CT scan of the abdomen and pelvis which showed a subcapsular hematoma as well as some free blood in the pelvis along with a CT angio of the chest which did not show a pulmonary embolus. He was admitted to the hospital after discussion with hospital inpatient physicians to be observed with transfusion support as necessary. Mr. Shanks's blood pressure was slightly low at time of admission with his hemoglobin dropping to 10.3. He has been resuscitated with a fluid bolus of normal saline with IV fluids continued. Today, he tells me that he has been feeling significantly better with significantly less abdominal pain. Pathology revealed small cell lung cancer. PAST MEDICAL HISTORY 1. Admission earlier in the week with chest pain and shortness of breathing with the findings of a mass lesion of the left hilum with contiguous consolidation and numerous liver lesions. 2. Gastroesophageal reflux disease. 3. Degenerative joint disease. PAST SURGICAL HISTORY 1. Bilateral rotator cuff repair. 2. Partial colectomy with colostomy and reversal for diverticular disease about 19 years ago. ALLERGIES He has no known medication allergies. FAMILY HISTORY Notable for carcinoid in brother. SOCIAL HISTORY Quit smoking a week prior to his admission with a 60-pack year history of smoking. Rarely drinks a beers. Single with two sons. Unit #: [id number] #: [id number] Patient: DARIUS SHANKS REVIEW OF SYSTEMS A 14-point review of systems taken. CONSTITUTIONAL: Fatigue, weakness. EYES: Negative. EARS, NOSE, MOUTH, THROAT: Negative. CARDIOVASCULAR: Negative. RESPIRATORY: Shortness of breathing which is now better with some wheezing as well as pain in his right lower chest. GASTROINTESTINAL: Hiccups, right upper quadrant abdominal pain. GENITOURINARY: Negative. NEUROLOGIC: Negative. ALLERGY: Negative. LYMPHATIC: Negative. SKIN: Negative. PSYCHIATRIC: Negative. PHYSICAL EXAMINATION GENERAL: He is a pleasant middle-aged man in less distress compared to when I saw him previously. VITAL SIGNS: Temperature is 98.1, pulse rate is 78, respiratory rate 20, blood pressure 107/58, oxygen saturation is 97% on room air. HEENT: Shows pupils equal, react well to light. Mild pallor. No icterus. Mucous membranes are moist. NECK: No adenopathy, JVD, thyromegaly. CARDIOVASCULAR: First and second heart sounds are heard and regular with no murmurs, gallops, or rubs. LUNGS: Chest expansion is symmetric bilaterally with normal breath sounds. ABDOMEN: Slightly tender in the right upper quadrant. Liver is easily palpable 6 inches above costal margin. Bowel sounds active. EXTREMITIES: Warm with good pulses. No edema, cyanosis, clubbing. NEUROLOGIC: Awake, alert, oriented to time, place. No focal findings. DIAGNOSTIC STUDIES LABORATORY: CBC shows a white count of 17.2, hemoglobin 10.6, platelet count 209,000 with a CBC on admission with a hemoglobin of 11.3. A complete metabolic panel with a BUN of 50, creatinine is 2.1 and a creatinine clearance of 33.5. AST 359, ALT 475, alkaline phosphatase 212, bilirubin 1.1, albumin 3.4. IMAGING: CT angio of the chest as discussed did not show (1) . ASSESSMENT AND PLAN Mr. Darius Shanks is a 66 year old newly diagnosed with extensive small cell lung cancer admitted with post procedure liver bleeding and subcapsular hematoma. He has become mildly hypotensive with a drop in hemoglobin related to his bleeding accompanied by acute kidney injury which is likely a combination of bleeding, hypotension, and likely contrast from his CT angio of the chest. Discussed the situation in detail with patient. RECOMMENDATIONS 1. Continue aggressive hydration with an additional bolus of 500 mL normal saline. 2. Consult [facility]. Discuss with Dr. Jose Luis Castellon about consultation. 3. Repeat CT scan of the abdomen to see if hematoma is stable. Unit #: [id number] #: [id number] Patient: DARIUS SHANKS 4. Will plan to get MRI of the brain to look for intracranial metastatic disease. Thank you for allowing me to participate in the care. Will follow with you. Dictated by... Simone Mendenhall/jenny TD: 12/09/2016 15:19 JOB #: [id number] CONSULTATION REPORT X Sergio Bajwa MD X CONSULTATION REPORT
--- NOTE | ~2016-12-06 | CT7 ---
[facility] A Service of [facility] RADIOLOGY TEXT RESULTS PATIENT: NINO SHANKS LOCATION: [facility] 337-01 : 48 UNIT #: [id number] AGE: [address]: Joshua Wang MD SEX: M ORDER DR: [id number] [place] [id number] [place], [place] [address] [id number] I MR#: [id number] Acc #: [id number] NAME: NINO SHANKS : 1950 SEX: M STUDY DATE/TIME: 12/07/2016 10:07 UNIT: C3A U ROOM: [facility] STUDY DESCRIPTION: CT Abdomen Wo Cont Attending Physician: Joshua Wang M.D. Ordering Physician: Sergio Bajwa M.D. Primary Care Physician: Primary Care Physician No MEDICAL IMAGING REPORT This report is preliminary unless electronic signature is present EXAM CT abdomen without contrast. INDICATIONS Small cell carcinoma of the liver. Diffuse metastatic disease. Shortness of air for [address] of the abdomen without contrast. Coronal and sagittal reconstructions were obtained. This CT exam was performed with one or more of the following radiation dose reduction techniques: automatic exposure control, adjustment of mA and/or kV according to patient size, and iterative reconstruction. COMPARISON CT abdomen with contrast dated 12/06/2016. FINDINGS There is a small intraparenchymal hematoma in the posterior right hepatic lobe measuring approximately 4.2 cm. This compares to approximately 4.3 cm on the prior study. Patient has undergone recent percutaneous biopsy. The subcapsular hematoma along the right lateral aspect of the liver measures 1.6 cm compared to 0.2 cm previously. This extends along the tip the liver into the right pericolic gutter. Hematoma has slightly decreased in size. The liver is enlarged by diffuse metastatic disease. The gallbladder is not distended. Pancreas, spleen, adrenal glands are unchanged. There is a right adrenal nodule. There is a small amount of excreted IV contrast in the renal collecting system. The bowel is not dilated. There is extensive colonic diverticulosis. No diverticulitis. [facility] A Service of [facility] RADIOLOGY TEXT RESULTS PATIENT: NINO SHANKS LOCATION: C3A 337-01 : 48 UNIT #: [id number] AGE: [address]: Joshua Wang MD SEX: M ORDER DR: No new osseous abnormalities. IMPRESSION 1. Slight decrease in the size of a subcapsular hematoma and intraparenchymal hematoma of the liver. 2. Diffuse hepatic metastatic disease as previously described. Dictated by... Trace Tolentino M.D. THIS IS AN ELECTRONICALLY VERIFIED REPORT Trace Tolentino M.D. at 12/07/2016 2:04 PM REINA/nathan TD: 12/07/2016 11:51 JOB #: [id number] MEDICAL IMAGING REPORT COPY
[~2016-12-06 16:29] MED LIST changes: -ADVAIR 100-501 EAC1 INH; -ALPRAZOLAM0.25 MG PO; -HYDROCODON-ACE1 EAC7 PO; -PROTONIX PO
[2016-12-06] MEDS ORDERED: ALEVE220 M1 PO (17:03)
[2016-12-06 21:06] LABS: HEMATOCRIT 34.6 % (38.0-50.0); HEMOGLOBIN 11.3 gm/dL (13.0-16.0); MEAN CELL VOLUME 85.6 FL (83-96); MEAN CORPUSCULAR HGB CONC 32.7 g/dL (30-36); MEAN PLATELET VOLUME 8.1 FL (6.5-11.5); RED BLOOD COUNT 4.04 X10e (3.90-5.60); RED CELL DISTRIBUTION WIDTH 15.3 % (11.0-15.5); WHITE BLOOD COUNT 19.4 X10e3 (4.0-10.5)
[2016-12-06 21:16] LABS: INR 1.2; PARTIAL THROMBOPLASTIN TIME 21.9 SECONDS (23.5-31.3); PROTHROMBIN TIME (PATIENT) 12.4 SECONDS (9.6-11.5)
[2016-12-06 22:15] LABS: ALBUMIN SERUM 3.4 g/dL (3.5-5.0); BILIRUBIN,TOTAL 1.1 mg/dL (0.2-2.0); BUN/CREATININE RATIO 23.8; CALCIUM SERUM 8.9 mg/dL (8.4-10.2); CREATININE SERUM 2.1 mg/dL (0.6-1.4); GLOM FILT RATE Estimated 33.5 mL/min (>60); POTASSIUM 4.9 mmol/L (3.5-5.1); PROTEIN TOTAL SERUM 6.8 g/dL (6.0-8.3)
[2016-12-07 05:55] LABS: HEMATOCRIT 32.2 % (38.0-50.0); HEMOGLOBIN 10.6 gm/dL (13.0-16.0); MEAN CELL VOLUME 84.8 FL (83-96); MEAN CORPUSCULAR HEMOGLOBIN 27.9 PG (28-34); MEAN CORPUSCULAR HGB CONC 32.9 g/dL (30-36); RED BLOOD COUNT 3.8 X10e (3.90-5.60); RED CELL DISTRIBUTION WIDTH 15.1 % (11.0-15.5); WHITE BLOOD COUNT 17.2 X10e3 (4.0-10.5)
[2016-12-07 15:49] LABS: URINE SOURCE CLEAN CATCH
[2016-12-07 15:54] LABS: URINE APPEARANCE CLEAR; URINE BILIRUBIN NEG (NEG); URINE BLOOD TRACE (NEG); URINE COLOR YELLOW; URINE GLUCOSE NEG (NEG); URINE KETONE NEG (NEG); URINE LEUKOCYTE ESTERASE NEG (NEG); URINE NITRATE NEG (NEG); URINE PROTEIN TRACE (NEG); URINE SPECIFIC GRAVITY 1.026 (1.003-1.035); URINE UROBILINOGEN 0.2 MG/DL (NEG)
[2016-12-07 15:56] LABS: U HYALINE CASTS AUWI 0-2 /[LPF]; URINE BACTERIA AUWI NEG (NEGATIVE); URINE SQUAMOUS EPITHELIAL CELL NONE SEEN /[HPF]; UWBCS1 AUWI 0-2 (0-5)
[2016-12-07 16:02] LABS: CULTURE INDICATED? NO
[2016-12-07 16:07] LABS: HEMATOCRIT 31.2 % (38.0-50.0); HEMOGLOBIN 10.5 gm/dL (13.0-16.0); MEAN CELL VOLUME 85.2 FL (83-96); MEAN CORPUSCULAR HEMOGLOBIN 28.7 PG (28-34); MEAN CORPUSCULAR HGB CONC 33.8 g/dL (30-36); RED BLOOD COUNT 3.67 X10e (3.90-5.60); RED CELL DISTRIBUTION WIDTH 15.3 % (11.0-15.5); WHITE BLOOD COUNT 17.1 X10e3 (4.0-10.5)
[2016-12-08 06:25] LABS: HEMATOCRIT 31.2 % (38.0-50.0); HEMOGLOBIN 10.3 gm/dL (13.0-16.0); MEAN CELL VOLUME 85.9 FL (83-96); MEAN CORPUSCULAR HEMOGLOBIN 28.4 PG (28-34); MEAN CORPUSCULAR HGB CONC 33.1 g/dL (30-36); RED BLOOD COUNT 3.63 X10e (3.90-5.60); RED CELL DISTRIBUTION WIDTH 15.3 % (11.0-15.5); WHITE BLOOD COUNT 12.8 X10e3 (4.0-10.5)
[2016-12-08 07:06] LABS: ALBUMIN SERUM 2.7 g/dL (3.5-5.0); ALKALINE PHOSPHATASE 230 U/L (32-92); ALT (SGPT) 242 U/L (10-40); AST (SGOT) 218 U/L (10-42); BILIRUBIN,TOTAL 1.2 mg/dL (0.2-2.0); BLOOD UREA NITROGEN 29 mg/dL (9-23); CALCIUM SERUM 8.4 mg/dL (8.4-10.2); CARBON DIOXIDE 20 mmol/L (22-31); CHLORIDE 104 mmol/L (100-111); GLOM FILT RATE Estimated ABOVE60 mL/min (>60); GLUCOSE FASTING 82 mg/dL (70-110); MAGNESIUM 2.1 mg/dL (1.6-3.0); PHOSPHOROUS 2.5 mg/dL (2.5-4.6); POTASSIUM 4.5 mmol/L (3.5-5.1); PROTEIN TOTAL SERUM 5.4 g/dL (6.0-8.3); SODIUM 133 mmol/L (135-145)
[2016-12-08] MEDS ORDERED: SYMBICORT INH (12:25)
[2016-12-25] MEDS ORDERED: PROTONIX PO (12:26)
[2016-12-25] MEDS ORDERED: HYDROCODON-ACE1 EAC7 PO (15:04)
[2016-12-25] MEDS ORDERED: ADVAIR 100-501 EAC1 INH (15:05)
[2016-12-25] MEDS ORDERED: ALPRAZOLAM0.25 MG PO (15:05)
== END 2016-12-08 15:34 | disposition home or self-care (01) | DRG 920 ==
LOC: CED 16:29 → C3A PCU 16:43
PROVIDERS: Internal Medicine; Internal Medicine Hematology & Oncology; Internal Medicine Nephrology
DX: K91.840 Postprocedural hemorrhage of a digestive system organ or structure following a digestive system procedure (principal); D62 Acute posthemorrhagic anemia; N17.9 Acute kidney failure, unspecified; C34.90 Malignant neoplasm of unspecified part of unspecified bronchus or lung; J44.9 Chronic obstructive pulmonary disease, unspecified; F17.200 Nicotine dependence, unspecified, uncomplicated; Y84.8 Other medical procedures as the cause of abnormal reaction of the patient, or of later complication, without mention of misadventure at the time of the procedure; K21.9 Gastro-esophageal reflux disease without esophagitis; M19.90 Unspecified osteoarthritis, unspecified site; Z80.9 Family history of malignant neoplasm, unspecified
CPT/HCPCS: 70551; 74150; 80053; 81003; 82947; 83735; 84100; 84300; 85027; 85610; 85730; 89190

== ENCOUNTER → 2016-12-06 | Outpatient (CLI) | payer MEDICARE ==
[~2016-12-06] MED LIST changes: +ADVAIR 100-501 EAC1 INH; +ALPRAZOLAM0.25 MG PO; +HYDROCODON-ACE1 EAC7 PO; +NO HOME MEDS; +PROTONIX PO; +SYMBICORT INH
--- NOTE | ~2016-12-06 | CT5 ---
[facility] A Service of [facility] RADIOLOGY TEXT RESULTS PATIENT: NINO SHANKS LOCATION: [facility] : 48 UNIT #: [id number] AGE: [address]: Sergio Bajwa MD SEX: M ORDER DR: [id number] [facility] [address] [place], [place] [address] [id number] MR#: [id number] Acc #: [id number] NAME: NINO SHANKS : 1950 SEX: M STUDY DATE/TIME: 12/06/2016 15:36 UNIT: [facility] ROOM: STUDY DESCRIPTION: CT Abdomen W Cont Attending Physician: Sergio Bajwa M.D. Referring Physician: Sergio Bajwa M.D. Ordering Physician: Sergio Bajwa M.D. Primary Care Physician: No Primary Care Physician MEDICAL IMAGING REPORT This report is preliminary unless electronic signature is present EXAM CT abdomen with contrast. DATE OF EXAM 12/06/2016 INDICATIONS Left upper lobe lung cancer. Patient is status post liver biopsy on 12/03/2016. Right upper quadrant abdominal pain since the liver biopsy. PROCEDURE Contrast-enhanced CT of the abdomen. 100 mL of Isovue-370. COMPARISON 06/05/2016 TECHNIQUE NOTE: This CT exam was performed with one or more of the following radiation dose reduction techniques: automatic exposure control, adjustment of mA and/or kV according to patient size, and iterative reconstruction. FINDINGS Refer to the separately dictated CT of the chest for thoracic findings. There are innumerable new hepatic metastases scattered throughout the liver. An index lesion towards the dome measures 2.1 cm. There is some perihepatic hemorrhage, measuring approximately 2.2 cm in thickness. The blood products extend inferiorly along the right paracolic gutter into the [facility] A Service [facility] RADIOLOGY TEXT RESULTS PATIENT: NINO SHANKS LOCATION: [facility] : 46 UNIT #: [id number] AGE: [address]: Sergio Bajwa MD SEX: M ORDER DR: right lower quadrant of the abdomen. Liver is significantly enlarged by the metastatic disease now measuring up to 23 cm. The spleen is unremarkable. Indeterminate right adrenal lesion measures up to 3 cm and is similar to the prior. Unremarkable pancreas. Bowel loops are nondilated. There are uncomplicated colonic diverticula. The blood product extends into the included portions of the pelvis. No aggressive-appearing bone lesion. IMPRESSION 1. Extensive hepatic metastatic disease, new compared with the comparison study. 2. There is moderate to moderately large volume of hemorrhage around the liver and tracking inferiorly along the right paracolic gutter and extending into the pelvis. 3. Stable indeterminate right adrenal lesion. Dictated by... Garth Booker M.D. THIS IS AN ELECTRONICALLY VERIFIED REPORT Garth Booker M.D. at 12/08/2016 7:36 AM CHRISTOPHER/jefferson TD: 12/06/2016 22:37 JOB #: [id number] MEDICAL IMAGING REPORT COPY
--- NOTE | ~2016-12-06 | CT16 ---
[facility] A Service of [facility] & [facility] RADIOLOGY TEXT RESULTS PATIENT: NINO SHANKS LOCATION: CCAT : 48 UNIT #: [id number] AGE: [address]: Sergio Bajwa MD SEX: M ORDER DR: [id number] [facility] [address] [place], [place] [address] [id number] O MR#: [id number] Acc #: [id number] NAME: NINO SHANKS : 1950 SEX: M STUDY DATE/TIME: 12/06/2016 15:36 UNIT: [facility] ROOM: STUDY DESCRIPTION: CT Angio Chest for PE Attending Physician: Sergio Bajwa M.D. Referring Physician: Sergio Bajwa M.D. Ordering Physician: Sergio Bajwa M.D. Primary Care Physician: No Primary Care Physician MEDICAL IMAGING REPORT This report is preliminary unless electronic signature is present EXAM CTA chest, PE protocol. DATE OF EXAM 12/06/2016 INDICATIONS Left upper lobe lung cancer. Patient status post recent liver biopsy with right upper quadrant abdominal pain since the biopsy on 12/03/2016. Shortness of air since 12/03/2016. PROCEDURE Contrast-enhanced CTA of the chest, with attention on opacification of the pulmonary arteries. Coronal 3-D MIP and sagittal reformatted images were reconstructed and submitted. 100 mL of Isovue-370. COMPARISON 12/03/2016 TECHNIQUE NOTE: This CT exam was performed with one or more of the following radiation dose reduction techniques: automatic exposure control, adjustment of mA and/or kV according to patient size, and iterative reconstruction. FINDINGS No evidence for pulmonary embolus. No pericardial fluid. The right subcarinal node measures approximately 12 mm and is very similar to the prior. A left perihilar node measures 2.4 cm and is stable. The left suprahilar mass measures 4.3 x 2.3 cm and is not significantly changed. Redemonstration of band-like soft tissue extending from the left suprahilar region, to the pleural surface of the anterior left upper lobe. This is unchanged from the prior. It could represent malignancy or STS. [facility] A Service of [facility] RADIOLOGY TEXT RESULTS PATIENT: NINO SHANKS [facility] UNIT #: [id number] AGE: [address]: Sergio Bajwa MD SEX: M ORDER DR: postobstructive pneumonitis or atelectasis. Left lower lobe nodule measures 9 mm and is stable. Emphysema. No aggressive appearing bone lesion. IMPRESSION 1. No evidence for pulmonary embolus. 2. No significant interval change in the left suprahilar mass and soft tissue extending anteriorly to the pleural surface in the left upper lobe. No significant change to the left hilar adenopathy, or other lymph nodes scattered throughout the mediastinum. 3. Emphysema. NOTE Dr. Bajwa has been contacted regarding findings for this study as well as the concurrently performed CT of the abdomen. Dictated by... Garth Booker M.D. THIS IS AN ELECTRONICALLY VERIFIED REPORT Garth Booker M.D. at 12/07/2016 6:57 AM CHRISTOPHER/jefferson TD: 12/06/2016 23:17 JOB #: [id number] MEDICAL IMAGING REPORT COPY
== END | disposition home or self-care (01) ==
LOC: CCAT 13:52
DX: C34.12 Malignant neoplasm of upper lobe, left bronchus or lung (principal); C78.7 Secondary malignant neoplasm of liver and intrahepatic bile duct; R06.02 Shortness of breath; J43.9 Emphysema, unspecified; E27.8 Other specified disorders of adrenal gland
CPT/HCPCS: 71275; 74160; Q9967

== ENCOUNTER → 2016-12-25 | Outpatient (CLI) | payer MEDICARE ==
[~2016-12-25] MED LIST changes: +ADVAIR 100-501 EAC1 INH; +ALPRAZOLAM0.25 MG PO; +HYDROCODON-ACE1 EAC7 PO; +PROTONIX PO
--- NOTE | ~2016-12-25 | XA91 ---
[facility] A Service of [facility] RADIOLOGY TEXT RESULTS PATIENT: NINO SHANKS LOCATION: CIVR : 48 UNIT #: [id number] AGE: [address]: Sergio Bajwa MD SEX: M ORDER DR: [id number] [facility] [address] [place], [place] [address] [id number] O MR#: [id number] Acc #: [id number] NAME: NINO SHANKS : 1950 SEX: M STUDY DATE/TIME: 12/25/2016 9:37 UNIT: CIVR ROOM: STUDY DESCRIPTION: XA CVC Tunneled W Port Attending Physician: Sergio Bajwa M.D. Ordering Physician: Sergio Bajwa M.D. Primary Care Physician: Generic Doctor Not In System MEDICAL IMAGING REPORT This report is preliminary unless electronic signature is present EXAM MediPort placement INDICATION Lung cancer. Patient which requires IV access for chemotherapy. FINDINGS The procedure was explained to the patient including risks, benefits, potential complications and potential for alternative forms of treatment. Informed consent was obtained and prior to initiating the procedure a formal time-out procedure was performed. Using all elements of maximal sterile barrier technique including hand hygiene, caps, sterile gowns, gloves and masks. Right neck and chest were prepped with 2% Chlorhexidine for cutaneous antisepsis and covered with a large sterile sheet. Real-time ultrasound guidance was used to localize the right internal jugular vein which was found to be patent and compressible. A hard copy ultrasound image was obtained. After local anesthesia with 1% Xylocaine the vein was punctured using real-time sterile ultrasound guidance. An 0.018 guidewire was advanced into the superior vena cava under fluoroscopic guidance. Micropuncture sheath was placed and a J-wire was advanced into the inferior vena cava. The skin and subcutaneous tissues of the right anterolateral chest wall were anesthetized with buffered Lidocaine and Lidocaine with epinephrine. A small skin incision was made, port was seated within the pocket and secured using two 3-0 Vicryl sutures and was tunneled up through the right anterolateral chest wall to the insertion site at the neck. Catheter was measured and trimmed and was advanced through a peel-away sheath and positioned within the superior vena cava. Following placement of the catheter it flushed and aspirated easily. Its position was confirmed with a radiographic image. Total fluoroscopy time was 0.1 minutes. AK was 2 mGy. Deep layer of the port pocket was closed using interrupted 3-0 Vicryl sutures and a running 4-0 Monocryl suture was used to close the STS. [facility] A Service of [facility] RADIOLOGY TEXT RESULTS PATIENT: NINO SHANKS LOCATION: CIVR : 48 UNIT #: [id number] AGE: [address]: Sergio Bajwa MD SEX: M ORDER DR: skin. Single 4-0 Monocryl suture was used to close the insertion site at the neck. Dermabond was applied to both wounds to act as a dressing. The patient did receive conscious sedation consisting of Versed and Fentanyl and continuous monitoring was provided by the IVR nurses for 25 minutes. IMPRESSION Successful placement of a right internal jugular vein MediPort which terminates within the superior vena cava. This catheter is ready for immediate use. Ultrasound and fluoroscopy were used during placement of the catheter and permanent images were saved. Dictated by... Sylvia Pineda M.D. THIS IS AN ELECTRONICALLY VERIFIED REPORT Sylvia Pineda M.D. at 12/26/2016 3:43 PM DONG/cindy TD: 12/26/2016 11:22 JOB #: [id number] MEDICAL IMAGING REPORT Page 1 of 1 COPY
[2016-12-25 08:29] LABS: INR 1.1; PARTIAL THROMBOPLASTIN TIME 29.9 SECONDS (23.5-31.3); PROTHROMBIN TIME (PATIENT) 11.3 SECONDS (9.6-11.5)
[2016-12-25 08:31] LABS: HEMATOCRIT 38.9 % (38.0-50.0); MEAN CELL VOLUME 83.9 FL (83-96); MEAN CORPUSCULAR HGB CONC 33.4 g/dL (30-36); RED BLOOD COUNT 4.64 X10e (3.90-5.60); RED CELL DISTRIBUTION WIDTH 15.5 % (11.0-15.5); WHITE BLOOD COUNT 2.5 X10e3 (4.0-10.5)
== END | disposition home or self-care (01) ==
LOC: CIVR 07:49
PROVIDERS: Internal Medicine Hematology & Oncology
PROC: 05HM33Z Insertion of Infusion Device into Right Internal Jugular Vein, Percutaneous Approach (ICD-10-PCS; principal; 2016-12-25)
DX: Z45.2 Encounter for adjustment and management of vascular access device (principal); C34.12 Malignant neoplasm of upper lobe, left bronchus or lung; C78.7 Secondary malignant neoplasm of liver and intrahepatic bile duct; R06.02 Shortness of breath; K91.840 Postprocedural hemorrhage of a digestive system organ or structure following a digestive system procedure; K21.9 Gastro-esophageal reflux disease without esophagitis; F17.200 Nicotine dependence, unspecified, uncomplicated; Z77.090 Contact with and (suspected) exposure to asbestos; F41.9 Anxiety disorder, unspecified; Z79.899 Other long term (current) drug therapy; Z79.891 Long term (current) use of opiate analgesic; Z80.9 Family history of malignant neoplasm, unspecified
CPT/HCPCS: 36415; 76937; 77001; 85027; 85610; 85730; C1788; J0690; J1642; J2250; J3010

== ENCOUNTER → 2017-01-22 | Outpatient (CLI) | payer MEDICARE ==
--- NOTE | ~2017-01-22 | CT55 ---
[facility] A Service of [facility] & [facility] RADIOLOGY TEXT RESULTS PATIENT: NINO SHANKS LOCATION: CCAT : 48 UNIT #: [id number] AGE: [address]: Sergio Bajwa MD SEX: M ORDER DR: [id number] [facility] [address] [place], [place] [address] [id number] O MR#: [id number] Acc #: [id number] NAME: NINO SHANKS : 1950 SEX: M STUDY DATE/TIME: 01/22/2017 08:59 UNIT: CCAT ROOM: STUDY DESCRIPTION: CT Chest W Con Attending Physician: Sergio Bajwa M.D. Ordering Physician: Sergio Bajwa M.D. Primary Care Physician: Generic Doctor Not In System MEDICAL IMAGING REPORT This report is preliminary unless electronic signature is present EXAM CT chest with contrast 01/22/2017 0859 hours HISTORY 66-year-old man with history of small cell lung cancer, left upper lobe with involvement of the liver. History of chemotherapy. Patient complains of postprandial indigestion for 2 weeks. Shortness of air since 12/04/2016. COMPARISON Chest CT 12/06/2016. TECHNIQUE Dynamic helical CT images were obtained from the thoracic inlet through the adrenal glands. 3-D sagittal and coronal reconstructions were performed. Contrast was Isovue-370 100 mL. Total exam DLP chest and abdomen CT today is 972 mGy-cm. This CT examination was performed with one or more of the following radiation dose reduction techniques: automatic exposure control, adjustment of mA and/or kV according to patient size, and iterative reconstruction. FINDINGS Images through the thoracic inlet demonstrate a right sided port catheter with tip at the junction of SVC and right atrium. No supraclavicular adenopathy is seen. Images through the chest demonstrate well opacified aorta and pulmonary arteries. There are stable small noncalcified superior mediastinal, prevascular, AP window nodes all measuring approximately 1 cm. There is a mass at the left anterior hilum irregularly shaped with soft tissue extension to the anteromedial pleura. This is somewhat difficult to accurately measure. Today's measurement as replicating the measurement planes as best as possible from 12/16/2016 is 4.5 x 2.1 cm previously 4.3 STS. [facility] A Service of [facility] RADIOLOGY TEXT RESULTS PATIENT: NINO SHANKS LOCATION: [facility] : 48 UNIT #: [id number] AGE: [address]: Sergio Bajwa MD SEX: M ORDER DR: x 2.3 cm felt unchanged. There is a small left hilar lymph node measuring 2.3 cm previously 2.4 cm. There is a subcarinal lymph node measuring 0.9 cm previously 1.1 cm. There is no pericardial or pleural fluid. There is significant underlying emphysematous change both centrilobular and paraseptal. No new or developing densities are seen. No acute bone lesions are seen. IMPRESSION 1. There is a persistent irregularly marginated left hilar mass extending anteriorly with soft tissue extension to the anterior medial pleura. This is difficult to accurately measure given its irregular shape but dimensions are similar to prior study at 4.5 x 2.1 cm previously 4.3 x 2.3 cm. There is a stable small left hilar lymph node at 2.3 cm and a subcarinal lymph node now measuring 0.9 cm previously 1.1 cm. 2. There is underlying emphysematous change with no new or developing densities. No pleural effusions or bone lesions. 3. Please see CT abdomen report for details regarding changes in the liver. Dictated by... Tawana Ibarra M.D. THIS IS AN ELECTRONICALLY VERIFIED REPORT Tawana Ibarra M.D. at 01/22/2017 2:28 PM FARIBA/yudith TD: 01/22/2017 10:50 JOB #: [id number] MEDICAL IMAGING REPORT Page 1 of 1 COPY
--- NOTE | ~2017-01-22 | CT5 ---
[facility] A Service of [facility] & [facility] RADIOLOGY TEXT RESULTS PATIENT: NINO SHANKS LOCATION: CCAT : 48 UNIT #: [id number] AGE: [address]: Sergio Bajwa MD SEX: M ORDER DR: [id number] [facility] [address] [place], [place] [address] [id number] O MR#: [id number] Acc #: [id number] NAME: NINO SHANKS : 1950 SEX: M STUDY DATE/TIME: 01/22/2017 08:59 UNIT: CCA ROOM: STUDY DESCRIPTION: CT Abdomen W Cont Attending Physician: Sergio Bajwa M.D. Ordering Physician: eSrgio Bajwa M.D. Primary Care Physician: Generic Doctor Not In System MEDICAL IMAGING REPORT This report is preliminary unless electronic signature is present EXAM CT abdomen with contrast 01/22/2017 0859 hours HISTORY 66-year-old man with known metastatic small cell carcinoma from the lung to the liver with multiple liver lesions. Patient has received chemotherapy since 12/04/2016. Evaluate response to therapy. Observation for suspected malignant neoplasm. Patient complains of 2-week history of postprandial indigestion COMPARISON 12/07/[address] images were obtained from the lung bases through the iliac crest with intravenous contrast only. Sagittal and coronal reconstructions were performed. Contrast was Isovue-370 100 mL. Total exam DLP 972 mGy-cm for the chest and abdomen study FINDINGS Images through the abdomen demonstrate continued decrease in size and density of the perihepatic subcapsular hematoma showing improvement. This measures 1 cm, previously 1.6 cm on 12/07/2016. Again demonstrated are innumerable low attenuation somewhat target like lesions throughout the liver most consistent with metastatic disease to the liver. The area of intrahepatic hematoma associated with one of the liver lesions likely the one previously biopsied is 4.2 cm not significantly changed. Example nodule in the left lobe the liver now measures 3 cm previously 2.7 cm. Example nodule in the right dome of the liver is 2.1 cm previously 2.1 cm. Example nodule inferiorly and posteriorly in the right lobe of the liver is 2.4 cm previously 1.9 cm. Findings are felt stable to increased. They are clearly not improved. [facility] A Service of [facility] RADIOLOGY TEXT RESULTS PATIENT: NINO SHANKS LOCATION: [facility]AT : 48 UNIT #: [id number] AGE: [address]: Sergio Bajwa MD SEX: M ORDER DR: There is a stable area of thickening right adrenal gland measuring 1.5 cm. There are small lymph nodes at the stephen hepatis which are not appreciably changed from the most recent study but are new from 06/15/2016 and concerning for pathologic, small nodes. The stomach has a small amount of contrast and food debris within. There is no gastric wall thickening. The gallbladder is contracted. No stones are seen. The spleen and left adrenal gland are normal. Visualized portions of the small bowel are normal. There are colonic diverticula in the transverse colon and the proximal descending colon. No bowel wall thickening is seen. IMPRESSION 1. Interval improvement and intrahepatic hematoma and decrease in size and density of the subcapsular hematoma around the liver. 2. Again demonstrated are innumerable liver lesions consistent with metastatic disease. This yields a complex appearance to the liver. My impression is that the lesions are stable to minimally increased in size but clearly not decreased in size or number. 3. There are small lymph nodes at the stephen hepatis which are new from 06/05/2016. Given their evolution since the changes in the liver they are viewed with suspicion for metastatic nodes. 4. Stable thickening of the right adrenal gland. 5. There is fluid and a small amount of contrast in the stomach only. No gastric wall thickening is seen. 6. Diverticulosis of the transverse colon and proximal descending colon without evidence of diverticulitis. Dictated by... Tawana Ibarra M.D. THIS IS AN ELECTRONICALLY VERIFIED REPORT Tawana Ibarra M.D. at 01/22/2017 2:28 PM Rodolfo TD: 01/22/2017 10:55 JOB #: [id number] MEDICAL IMAGING REPORT Page 1 of 1 COPY
[2017-01-22 09:05] LABS: POC - CREATININE 1.09 mg/dL (0.64-1.27); POC - GFR >60.0 mL/min (>60)
== END | disposition home or self-care (01) ==
LOC: CCAT 07:52
PROVIDERS: Internal Medicine Hematology & Oncology
DX: C34.12 Malignant neoplasm of upper lobe, left bronchus or lung (principal); C78.7 Secondary malignant neoplasm of liver and intrahepatic bile duct; R06.02 Shortness of breath; K91.840 Postprocedural hemorrhage of a digestive system organ or structure following a digestive system procedure; K57.30 Diverticulosis of large intestine without perforation or abscess without bleeding; K76.89 Other specified diseases of liver
CPT/HCPCS: 71260; 74160; 82565; J1642; Q9967

== ENCOUNTER → 2017-01-29 | Outpatient (CLI) | payer MEDICARE ==
--- NOTE | ~2017-01-29 | XA47 ---
[facility] A Service of [facility] & [facility] RADIOLOGY TEXT RESULTS PATIENT: NINO SHANKS JR LOCATION: [facility]R : 48 UNIT #: [id number] AGE: [address]: Sergio Bajwa MD SEX: M ORDER DR: [id number] [facility] [address] [place], [place] [address] [id number] O MR#: [id number] Acc #: [id number] NAME: NINO SHANKS : 1950 SEX: M STUDY DATE/TIME: 01/29/2017 14:11 UNIT: [facility]IVR ROOM: STUDY DESCRIPTION: XA Aspiration Cyst/Abscess/Hem Attending Physician: Sergio Bajwa M.D. Ordering Physician: Sergio Bajwa M.D. Primary Care Physician: Primary Care Physician No MEDICAL IMAGING REPORT This report is preliminary unless electronic signature is present EXAM Ultrasound guided incision and drainage HISTORY Lung cancer, right posterior chest wall mass. There is no known metastatic lung cancer with clinical concern about possible cutaneous metastasis. Evaluation and aspiration or biopsy of a right posterior chest/upper back mass is requested. FINDINGS Comparison made to chest CTs of November and December 2016. Patient with known metastatic lung cancer, the superficial left skin lesion has characteristic, sonographic and exam appearance suggesting an epidermal inclusion cyst with secondary superinfection. In retrospect, a small lesion was present on chest CT of December 03. After superficial antisepsis with Betadine cleanse, local anesthesia, incision and drainage was performed. Gross pus expressed. After no more pus could be expressed, the patient was discharged with a prescription for 10 day course of Keflex. IMPRESSION Sonographic and prior CT findings most suggestive of an epidermal inclusion cyst with secondary superinfection. This was antiseptically anesthetized and purulent material was expressed and the patient started on a course of oral antibiotic therapy with Keflex for 10 days. Dictated by... Lamont Desai M.D. THIS IS AN ELECTRONICALLY VERIFIED REPORT Lamont Desai M.D. at 02/05/2017 10:37 AM [facility] A Service of [facility] & [facility] RADIOLOGY TEXT RESULTS PATIENT: NINO SHANKS JR LOCATION: [facility] : 48 UNIT #: [id number] AGE: [address]: Sergio Bajwa MD SEX: M ORDER DR: Harley TD: 02/01/2017 08:14 JOB #: [id number] MEDICAL IMAGING REPORT Page 1 of 1 COPY
== END | disposition home or self-care (01) ==
LOC: CIVR 13:54
DX: R22.2 Localized swelling, mass and lump, trunk (principal)
CPT/HCPCS: 76942

== ENCOUNTER → 2017-02-12 | Outpatient (CLI) | payer MEDICARE ==
--- NOTE | ~2017-02-12 | CT5 ---
[facility] A Service of [facility] & [facility] RADIOLOGY TEXT RESULTS PATIENT: NINO SHANKS JR [facility] : 48 UNIT #: [id number] AGE: [address]: Sergio Bajwa MD SEX: M ORDER DR: [id number] [facility] [address] [place], [place] [address] [id number] O MR#: [id number] Acc #: [id number] NAME: NINO SHANKS : 1950 SEX: M STUDY DATE/TIME: 02/12/2017 8:15 [facility] ROOM: STUDY DESCRIPTION: CT Abdomen W Cont Attending Physician: Sergio Bajwa M.D. Ordering Physician: Sergio Bajwa M.D. Primary Care Physician: Primary Care Physician No MEDICAL IMAGING REPORT This report is preliminary unless electronic signature is present EXAM Abdomen CT with contrast 02/12/2017 INDICATION 66-year-old male with history of lung cancer. 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 Worsening shortness of air since November. Status post 3 recent chemotherapy treatments since his last CT in December. Observation for suspected malignant neoplasm. Active malignancy. TECHNIQUE Contrast enhanced abdomen CT was performed and compared with 01/22/2017. This CT examination was performed with one or more of the following radiation dose reduction techniques: automatic exposure control, adjustment of mA and/or kV according to patient size, and iterative reconstruction. FINDINGS Please see the separately dictated chest CT for further details regarding chest findings. The lung bases demonstrate emphysema. There is evidence of prior asbestos exposure with calcified pleural plaques. Aorta demonstrates atherosclerotic change but no distinct aneurysm or dissection. The spleen and left adrenal gland are unremarkable and the pancreas is unremarkable. There is right adrenal fullness measuring up to 1.2 cm stable to slightly less conspicuous than on the prior study when it measured 1.6 cm. Kidneys are nonobstructed. Incidental tiny left renal cyst and nonobstructing left renal stone measuring only about 1-2 mm. There is a small amount of perihepatic ascites/subcapsular hematoma. Maximum thickness is now 11 mm previously 10 mm. There are numerous (greater than 20) targetoid lesions scattered throughout both the right and left hepatic lobes. Overall number and conspicuity of lesions does not appear appreciably changed for technical factors. Index lesion in the [facility] A Service of [facility] RADIOLOGY TEXT RESULTS PATIENT: NINO SHANKS JR LOCATION: [facility] : 48 UNIT #: [id number] AGE: [address]: Sergio Bajwa MD SEX: M ORDER DR: dome of the right hepatic lobe measures 2 cm, unchanged. Index lesion in the posterior left hepatic lobe measures 2.8 cm, unchanged. Index lesion in the right hepatic lobe bordering segments 8 and 7 measures 4.1 cm also unchanged. Abnormal-appearing lymph nodes in the gastrohepatic ligament and periportal stations are similar to the prior study. Index gastrohepatic node measures 1 cm short axis stable to smaller than on the prior study when it measured 1.2 cm. Incidental diverticulosis. No bowel obstruction. Trace fluid tracks in the right paracolic gutter. There is a probable metastasis involving the inferior endplate of L4. It measures about 17 mm. Additional probable metastasis involving the anterior-superior endplate of L5 extending into the anterior mid body of L5 has a mixed sclerotic and lytic appearance measuring up to about 2 cm. There is no compression fracture deformity. Alignment preserved. IMPRESSION 1. Extensive metastatic deposits within the liver. Findings are similar to the prior study. Reference index targetoid lesions are provided in the body of the report. 2. No significant interval change in upper abdominal adenopathy involving the gastrohepatic and periportal stations. 3. Stable to slight interval decrease in fullness of the right adrenal gland. 4. Small amount of perihepatic ascites versus subcapsular liver hematoma similar to the prior study with a maximum thickness of about 11 mm. 5. Probable metastatic deposits at L4 and L5 without compression fracture deformities or malalignment. 6. Please see the separately dictated chest CT same date for further details. Dictated by... Ismael Fisher M.D. THIS IS AN ELECTRONICALLY VERIFIED REPORT Ismael Fisher M.D. at 02/12/2017 4:32 PM ANDRA/yudith TD: 02/12/2017 13:56 JOB #: [id number] MEDICAL IMAGING REPORT Page 1 of 1 COPY
--- NOTE | ~2017-02-12 | CT55 ---
[facility] A Service of [facility] & [facility] RADIOLOGY TEXT RESULTS PATIENT: NINO SHANKS JR [facility] 48 UNIT #: [id number] AGE: [address]: Sergio Bajwa MD SEX: M ORDER DR: [id number] [facility] [address] [place], [place] [address] [id number] O MR#: [id number] [facility] #: [id number] NAME: NINO SHANKS : 1950 SEX: M STUDY DATE/TIME: 02/12/2017 8:30 UNIT: [facility] ROOM: STUDY DESCRIPTION: CT Chest W Con Attending Physician: Sergio Bajwa M.D. Ordering Physician: Sergio Bajwa M.D. Primary Care Physician: Primary Care Physician No MEDICAL IMAGING REPORT This report is preliminary unless electronic signature is present EXAM CT of the chest with contrast 02/12/2017 INDICATIONS Malignant neoplasm of left upper lobe. Secondary malignant neoplasm of the liver and intrahepatic biliary tree. Shortness of breath. Reevaluation following 3 recent chemotherapy treatments. Worsening shortness of air since November of this year. Observation for suspected malignant neoplasm and active malignancy. TECHNIQUE Contrast enhanced CT chest was performed and compared with 01/22/[address] exam was performed with one or more of the following radiation dose reduction techniques: automatic exposure control, adjustment of mA and/or kV according to patient size, and iterative reconstruction. FINDINGS CT CHEST. The lungs are emphysematous. There is evidence of prior asbestos exposure with calcified pleural plaques. No evidence of pleural effusion. No pneumothorax. There is redemonstration of a mass in the left anterior hilar region with irregular margins. In the axial plane, dimensions are challenging to measure but when compared to the prior study at a comparable level. Dimensions today are about 3.8 x 1.9 cm previously 4.5 x 2.1 cm. There is soft tissue extension of the mass peripherally to abut the anterior medial pleura and there is some probable postobstructive atelectasis in the left upper lobe. These findings are similar to the prior study. There is no new pulmonary nodule or mass. Probable subtle nodular pleural thickening [facility] A Service of [facility] & [facility] RADIOLOGY TEXT RESULTS PATIENT: INNO SHANKS JR [facility] : 48 UNIT #: [id number] AGE: [address]: Sergio Bajwa MD SEX: M ORDER DR: in the right lower lobe measures of 5 mm or less and is unchanged. It can be followed on subsequent studies to reassess stability. Included thyroid is unremarkable. Stable precarinal node to the right of midline measures 8 mm short axis. AP window node unchanged at 12 mm. There is a subcarinal node and infrahilar node on the left. The subcarinal node is stable to smaller. The infrahilar node on the left is stable to slightly larger at 2.8 cm versus 2.3 cm on the prior study. There is no new pericardial effusion. Aorta demonstrates no aneurysm or dissection. There is old healed granulomatous disease. No new axillary adenopathy. Please see the separately dictated abdominal CT report for further details regarding findings below the diaphragm. However, there are innumerable (greater than 20) masses within the liver, there is adenopathy in the upper abdomen. Redemonstration of a right adrenal mass. Osseous structures demonstrate no new suspicious bone lesion. IMPRESSION 1. The left-sided hilar mass is stable to perhaps minimally smaller than on the prior study when measured in a similar fashion. Adenopathy in the mediastinum and hilar stations is stable to perhaps minimally increased in the left infrahilar station. 2. The lungs are emphysematous. No new pulmonary nodule identified or pleural effusion. 3. Upper abdomen demonstrates extensive metastatic disease involving the liver. Please see the separately dictated abdomen CT for further details and Dictated by... Ismael Fisher M.D. THIS IS AN ELECTRONICALLY VERIFIED REPORT Ismael Fisher M.D. at 02/12/2017 4:31 PM Ruben TD: 02/12/2017 13:46 JOB #: [id number] MEDICAL IMAGING REPORT Page 1 of 1 COPY
[2017-02-12 09:45] LABS: POC - GFR >60.0 mL/min (>60)
== END | disposition home or self-care (01) ==
LOC: CCAT 06:59
PROVIDERS: Internal Medicine Hematology & Oncology
DX: C78.7 Secondary malignant neoplasm of liver and intrahepatic bile duct (principal); C34.12 Malignant neoplasm of upper lobe, left bronchus or lung; K91.840 Postprocedural hemorrhage of a digestive system organ or structure following a digestive system procedure; J43.9 Emphysema, unspecified
CPT/HCPCS: 71260; 74160; 82565; J1642; Q9967

== ENCOUNTER → 2017-03-19 | Outpatient (CLI) | payer MEDICARE ==
--- NOTE | ~2017-03-19 | CT5 ---
[facility] A Service of [facility] RADIOLOGY TEXT RESULTS PATIENT: NINO SHANKS JR [facility] 48 UNIT #: [id number] AGE: [address]: Sergio Bajwa MD SEX: M ORDER DR: [id number] [facility] [address] [place], [place] [address] [id number] O MR#: [id number] Acc #: [id number] NAME: NINO SHANKS : 1950 SEX: M STUDY DATE/TIME: 03/19/2017 8:21 UNIT: [facility] ROOM: STUDY DESCRIPTION: CT Abdomen W Cont Attending Physician: Sergio Bajwa M.D. Ordering Physician: Sergio Bajwa M.D. Primary Care Physician: Primary Care Physician No MEDICAL IMAGING REPORT This report is preliminary unless electronic signature is present EXAM CT abdomen and pelvis with contrast INDICATIONS Restaging liver and lung cancer observation of metastatic disease. PROCEDURE Contrast-enhanced CT abdomen and pelvis. The CT exam was performed with one or more of the following radiation dose reduction techniques: automatic exposure control, adjustment of mA and/or kV according to patient size, and iterative reconstruction. COMPARISON: 02/12/17 FINDINGS Refer to separately dictated chest CT for thoracic findings. The liver enlarged and replaced by innumerable hepatic metastases. An index lesion in the central right hepatic lobe measures 3.8 cm previously 4.1 cm. A second index lesion in the left lobe of the liver measures 3.6 cm previously 2.8 cm. Third index lesion at the inferior right hepatic lobe measures 2.8 cm previously 2.1 cm. The spleen, kidneys, pancreas unremarkable. Gallbladder is contracted. Nonspecific mildly prominent portacaval node measures 1.3 cm. Bowel loops are nondilated. There is scattered ascites throughout the abdomen and pelvis. Pelvis with contrast: No pelvic mass or fluid. [facility] A Service of [facility] RADIOLOGY TEXT RESULTS PATIENT: NINO SHANKS JR [facility] : 48 UNIT #: [id number] AGE: [address]: Sergio Bajwa MD SEX: M ORDER DR: IMPRESSION 1. Diffuse hepatic metastatic disease slightly progressed from a previous study. 2. Not mentioned above a right adrenal metastasis measures approximately 1.4 cm short axis dimension minimally larger than on the prior. Dictated by... Garth Booker M.D. THIS IS AN ELECTRONICALLY VERIFIED REPORT Garth Booker M.D. at 03/20/2017 7:08 AM CHRISTOPHER/kassandra TD: 03/19/2017 13:45 JOB #: [id number] MEDICAL IMAGING REPORT Page 1 of 1 COPY
--- NOTE | ~2017-03-19 | CT55 ---
[facility] A Service [facility] RADIOLOGY TEXT RESULTS PATIENT: NINO SHANKS JR LOCATION: [facility] : 48 UNIT #: [id number] AGE: [address]: Sergio Bajwa MD SEX: M ORDER DR: [id number] [facility] [address] [place], [place] [address] [id number] O MR#: [id number] Acc #: [id number] NAME: NINO SHANKS : 1950 SEX: M STUDY DATE/TIME: 03/19/2017 8:21 UNIT: [facility] ROOM: STUDY DESCRIPTION: CT Chest W Con Attending Physician: Sergio Bajwa M.D. Ordering Physician: Sergio Bajwa M.D. Primary Care Physician: No Primary Care Physician MEDICAL IMAGING REPORT This report is preliminary unless electronic signature is present EXAM CT chest with contrast INDICATIONS Liver and lung cancer restaging. Observation for metastatic disease. PROCEDURE Contrast-enhanced CT of the chest. This CT exam was performed with one or more of the following radiation dose reduction techniques: automatic exposure control, adjustment of mA and/or kV according to patient size, and iterative reconstruction. COMPARISON 02/12/2017 FINDINGS Emphysema. No new nodules or new dense consolidation. The left hilar mass measures approximately 4.2 x 2.1 cm, when measured in a similar fashion, as on the previous study. There is postobstructive atelectasis in the left upper lobe. Left hilar node measures 2.9 x 2.2 cm, previously 2.8 x 1.9 cm. Right-sided subcarinal node measures 1.2 cm short axis dimension previously 7 mm. A prevascular node measures 11 mm short axis dimension, previously 7 mm. A right hilar node measures 3 cm, previously 1.8 cm. Sclerosis along the right posterior aspect of the T10 vertebral body not significantly changed. No new bone lesions are seen. Refer to the separately dictated abdomen CT for findings below the diaphragm. [facility] A Service [facility] RADIOLOGY TEXT RESULTS PATIENT: NINO SHANKS JR LOCATION: [facility] : 48 UNIT #: [id number] AGE: [address]: Sergio Bajwa MD SEX: M ORDER DR: IMPRESSION Interval progression of disease. The left hilar mass measures slightly larger. Left and right hilar and mediastinal adenopathy has increased in size since the previous study. Dictated by... Garth Booker M.D. THIS IS AN ELECTRONICALLY VERIFIED REPORT Garth Booker M.D. at 03/20/2017 7:08 AM Kimberly TD: 03/19/2017 13:48 JOB #: [id number] MEDICAL IMAGING REPORT Page 1 of 1 COPY
[2017-03-19 09:55] LABS: POC - CREATININE 0.97 mg/dL (0.64-1.27); POC - GFR >60.0 mL/min (>60)
== END | disposition home or self-care (01) ==
LOC: CCAT 07:02
PROVIDERS: Internal Medicine Hematology & Oncology
DX: C34.12 Malignant neoplasm of upper lobe, left bronchus or lung (principal); C78.7 Secondary malignant neoplasm of liver and intrahepatic bile duct; K91.840 Postprocedural hemorrhage of a digestive system organ or structure following a digestive system procedure; R59.0 Localized enlarged lymph nodes; R91.8 Other nonspecific abnormal finding of lung field
CPT/HCPCS: 71260; 74160; 82565; J1642; Q9967